=== PATIENT | male | born 1955 | race African-American/Black ===

== ENCOUNTER 2016-08-21 10:05 | Emergency (ER) | payer OTHER, BC ==
[~2016-08-21] VITALS: Ht 180.3 cm; Wt 88.5 kg
--- NOTE | ~2016-08-21 | EKG ---
[address] [address] ELECTROCARDIOGRAM REPORT Name: SALLYKEESHA Lida [id number] Admission: 08/21/16 Attend Phys: Discharge: 08/21/16 Date of : 55 Report #: [id number] THIS REPORT FOR: //name// [facility] ED Test Date: 2016-08-21 Test Time: 10:21:13 Pat Name: KEESHA ZAVALA Department: Room: Gender: M Learning And Development Intern: katelynn : 1955 Requested By: Saad Rizzo Order Number: [id number] MD: Raoul Peña Measurements Intervals [place] Rate: 108 P: 69 WV: 140 QRS: 39 QRSD: 83 T: 66 QT: 341 QTc: 457 Interpretive Statements Sinus tachycardia Otherwise no significant abnormality Compared to ECG 12/27/2015 21:59:39 Prolonged QT interval no longer present Electronically Signed On 08-22-2016 8:51:15 CITY LETTER CARRIER by Raoul Peña [email or web address] <ELECTRONICALLY SIGNED> By: Raoul Peña MD, [facility] 08/22/16 0851 1021 1021 Raoul Peña MD, FACC /EPI
[~2016-08-21 10:05] MED LIST: ALLOPURINOL 10100 M1 PO; ALLOPURINOL 30300 M1 PO; ALLOPURINOL 30300 M2 PO; APAP500 PO; ASPIRIN325 PO; AUGMENTIN XR1000 MG PO; BENADRYL25 MG PO; BENTYL 10 MG CA10 M1 PO; CALCIUM ACETAT667 M2 PO; CALCIUM ACETAT667 MG PO; CARAFATE 1 GM TA1 G1 PO; CARISOPRODOL 3350 MG PO; CARVEDILOL12.5 MG PO; CARVEDILOL6.25 MG PO; CATAPRES0.1 MG PO; CEFTIN 250 MG250 MG PO; CLARITIN10 MG; CLONIDINE HCL0.2 M2 PO; CLONIDINE-TTS0.3 MG TRANSDERM; CLONIDINE0.1 PO; COLACE 100 MG100 MG PO; DIAZEPAM 5 MG5 MG PO; DILTIAZEM 24HR120 M1 PO; ENALAPRIL MALEA10 M1 PO; ERYTHROMYCIN E400 MG PO; FENTANYL PA50 MCG/HR TOP; FENTANYL PA50 MCG/HR TRANSDERM; FUROSEMIDE 40 M40 MG PO; GAS-X125 MG PO; HUMALOG MI100 UNIT/6 SUBQ; HYDROCODON-ACE1 EAC7 PO; HYDROCODONE-IBU1 TAB PO; IBUPROFEN 200200 M1 PO; LANSOPRAZOLE30 MG PO; LANTUS SUBQ; LAXATIVE PEG 3317 GM PO; LIDODERM 5%1 PATC1 TRANSDERM; LISINOPRIL20 MG PO; LISINOPRIL40 MG PO; MEDROLDOSEPACK PO; METHADONE HCL 110 M1 PO; METOCLOPRAMIDE 55 M1 PO; METOLAZONE 5 MG5 M1 PO; MIRALAX17 GM PO; MYLANTA TABLET1 TA1 PO; NEPHROCAPS SOFT1 CAP PO; NEURONTIN 300300 M1 PO; NORCO 5-325 TA1 EACH PO; NORVASC10 MG PO; NOVOLIN 70100 UNIT/5 SUBQ; NOVOLOG MI100 UNIT/2 SUBQ; NYSTATIN 1100000 U/M SWISH&SPIT; ONDANSETRON HCL4 M2 PO; OXECTA5 MG PO; OXYCODONE HCL10 MG PO; OXYCODONE HCL5 M1 PO; OXYCONTIN10 M1 PO; PAIN & FEVER325 MG PO; PANCREAZE 4,201 EACH PO; PERCOCET 5-3251 EACH PO; PERCOCET 7.5-31 EACH PO; PERCOCET PO; PHENERGAN 25 MG25 M1 PO; PHENERGAN50 MG RC; PRAVACHOL40 MG PO; PREVACID 24HR15 MG PO; PRILOSEC20 MG PO; PROTONIX40 M1 PO; PROTONIX40 M2 PO; PROTONIX40 MG PO; REGLAN 5 MG TAB5 MG PO; ROBAXIN 750 MG750 M1 PO; SENOKOT-S1 TA1 PO; SENSIPAR 30 MG30 M1 PO; TAMSULOSIN HCL0.4 MG PO; TRAMADOL 50 MG50 MG PO; TRANSDERM-SCO1 PATC1 TD; TRANSDERM-SCO1 PATC1 TRANSDERM; TRAZODONE HCL50 MG PO; TUMS PO; VICOPROFEN 2001 EACH PO; VOLTAREN GEL 1100 G2 TOP; XANAX 1 MG TABLE1 MG PO; ZOFRAN ODT4 MG PO; ZOLOFT25 MG PO
[2016-08-21 10:28] LABS: HEMATOCRIT 41.2 % (42.0-52.0); HEMOGLOBIN 13.5 gm/dL (14.0-18.0); MCH 26.3 pg (26.0-34.0); MCHC 32.7 % (28.0-37.0); MCV 80.5 fL (80.0-100.0); PLATELET COUNT 218 thou/uL (150-400); RBC 5.12 mil/uL (4.50-6.00); RDW 16.3 % (10.5-14.5); WBC 12.3 thou/uL (4.0-11.0)
[2016-08-21 10:31] LABS: MANUAL DIFF YES
[2016-08-21] MEDS ORDERED: ALLOPURINOL 30300 M2 PO (10:31)
[2016-08-21] MEDS ORDERED: AMLODIPINE BESY10 MG PO (10:32)
[2016-08-21] MEDS ORDERED: ASPIRIN325 PO (10:32)
[2016-08-21] MEDS ORDERED: NEPHROCAPS SOFT1 CAP PO (10:33)
[2016-08-21] MEDS ORDERED: COREG25 MG PO (10:33)
[2016-08-21] MEDS ORDERED: SENSIPAR 30 MG30 M1 PO (10:33)
[2016-08-21] MEDS ORDERED: COLACE100 MG PO (10:34)
[2016-08-21] MEDS ORDERED: VOLTAREN GEL 1100 G2 TOP (10:34)
[2016-08-21] MEDS ORDERED: ERYTHROMYCIN E400 MG PO (10:48)
[2016-08-21] MEDS ORDERED: NEURONTIN 300300 M1 PO (10:49)
[2016-08-21] MEDS ORDERED: HUMALOG100 UNIT/2 SQ (10:50)
[2016-08-21] MEDS ORDERED: METHADONE HCL 110 M1 PO (10:51)
[2016-08-21] MEDS ORDERED: LIDOCAINE5 GM TP (10:51)
[2016-08-21] MEDS ORDERED: REGLAN 10 MG TA10 MG PO ×2 (10:52→12:35)
[2016-08-21] MEDS ORDERED: ZOFRAN4 MG PO (10:53)
[2016-08-21] MEDS ORDERED: OXYCODONE HCL15 MG PO (10:53)
[2016-08-21] MEDS ORDERED: PROTONIX40 M1 PO (10:53)
[2016-08-21] MEDS ORDERED: PROMS25 WY RECTAL (10:54)
[2016-08-21] MEDS ORDERED: PRAVACHOL40 MG PO (10:54)
[2016-08-21] MEDS ORDERED: MIRALAX17 GM PO (10:54)
[2016-08-21] MEDS ORDERED: TRANSDERM-SCO1 PATC1 TRANSDERM (10:55)
[2016-08-21] MEDS ORDERED: RENVELA800 MG PO (10:56)
[2016-08-21] MEDS ORDERED: CARAFATE 11 GM/10 M1 PO (10:57)
[2016-08-21] MEDS ORDERED: TRAZODONE HCL50 MG PO (10:58)
[2016-08-21 11:18] LABS: ABSOLUTE NEUTROPHILS 10.8 thou/uL (1.4-8.2); TOTAL CELL COUNT 100
[2016-08-21 11:19] LABS: ANISOCYTOSIS 1+
[2016-08-21 11:24] LABS: ALBUMIN 4.1 g/dL (3.4-5.0); CALCIUM 9.8 mg/dL (8.5-10.1); CREATININE 6.1 mg/dL (0.6-1.3); POTASSIUM 3.5 mmol/L (3.5-5.1); TOTAL BILIRUBIN 0.9 mg/dL (<0.1-1.0); TOTAL PROTEIN 8.4 g/dL (6.4-8.2)
[2016-08-21] MEDS ORDERED: PHENERGAN 25 MG25 M1 PO (11:54)
[2016-08-21 12:38] VITALS: BP 171/96
[2016-10-14] MEDS ORDERED: PERCOCET 10-321 EAC1 PO (18:39)
[2016-10-14] MEDS ORDERED: CARAFATE1 GM/10 ML PO (19:31)
== END 2016-08-21 12:42 | disposition home or self-care (01) ==
LOC: ER 10:05
PROVIDERS: Physician Assistant
DX: K31.84 Gastroparesis (principal); R11.2 Nausea with vomiting, unspecified; I12.0 Hypertensive chronic kidney disease with stage 5 chronic kidney disease or end stage renal disease; E11.22 Type 2 diabetes mellitus with diabetic chronic kidney disease; E78.5 Hyperlipidemia, unspecified; K21.9 Gastro-esophageal reflux disease without esophagitis; F12.10 Cannabis abuse, uncomplicated; F32.9 Major depressive disorder, single episode, unspecified; F41.9 Anxiety disorder, unspecified; I25.2 Old myocardial infarction; N18.6 End stage renal disease; N17.9 Acute kidney failure, unspecified; Z99.2 Dependence on renal dialysis; Z79.4 Long term (current) use of insulin; Z87.891 Personal history of nicotine dependence

== ENCOUNTER 2016-12-12 23:42 | Emergency (ER) | payer OTHER, BC ==
[~2016-12-12] VITALS: Ht 180.3 cm; Wt 85.7 kg
[~2016-12-12 23:42] MED LIST changes: +AMLODIPINE BESY10 MG PO; +CARAFATE 11 GM/10 M1 PO; +CARAFATE1 GM/10 ML PO; +COLACE100 MG PO; +COREG25 MG PO; +HUMALOG100 UNIT/2 SQ; +LIDOCAINE5 GM TP; +OXYCODONE HCL15 MG PO; +PERCOCET 10-321 EAC1 PO; +PROMS25 WY RECTAL; +REGLAN 10 MG TA10 MG PO; +RENVELA800 MG PO; +ZOFRAN4 MG PO
[2016-12-12] MEDS ORDERED: OXYCODONE HCL10 MG PO (23:55)
[2016-12-13] MEDS ORDERED: REGLAN 10 MG TA10 MG PO (01:06)
[2016-12-13] MEDS ORDERED: PHENERGAN 25 MG25 M1 PO (01:06)
[2016-12-13 01:15] VITALS: BP 138/76
== END 2016-12-13 01:15 | disposition home or self-care (01) ==
LOC: ER 23:42
DX: K31.84 Gastroparesis (principal); E78.5 Hyperlipidemia, unspecified; K21.9 Gastro-esophageal reflux disease without esophagitis; I12.0 Hypertensive chronic kidney disease with stage 5 chronic kidney disease or end stage renal disease; E11.22 Type 2 diabetes mellitus with diabetic chronic kidney disease; N18.6 End stage renal disease; I25.2 Old myocardial infarction; F17.210 Nicotine dependence, cigarettes, uncomplicated; Z79.4 Long term (current) use of insulin; Z88.5 Allergy status to narcotic agent

== ENCOUNTER 2016-12-14 07:33 | Inpatient (IN) | payer OTHER, BC ==
[~2016-12-14] VITALS: Ht 180.3 cm; Wt 80.3 kg
--- NOTE | ~2016-12-14 | EKG ---
[place] [address] [facility] [place] [address] ELECTROCARDIOGRAM REPORT Name: MANNY ZAVALADARLIN Hilton [facility] [id number] Admission: 12/14/16 Attend Phys: Discharge: Date of : 55 Report #: [id number] THIS REPORT FOR: //name// [facility] ED Test Date: 2016-12-14 Test Time: 08:20:05 Pat Name: KEESHA ZAVALA Department: Room: Gender: Bander Hand: Suzanne SANTIAGO : 1955 Requested By: Reyes Jalloh Order Number: [id number] MD: Raoul Peña Measurements Intervals [place] Rate: 107 P: 56 ID: 149 QRS: 43 QRSD: 87 T: 58 QT: 349 QTc: 466 Interpretive Statements Sinus tachycardia Otherwise no significant abnormality Compared to ECG 10/23/2016 14:51:49 Sinus rhythm no longer present ST (T wave) deviation no longer present Prolonged QT interval no longer present Electronically Signed On 12-14-2016 8:38:46 CDT by Raoul Peña [email or web address] <ELECTRONICALLY SIGNED> By: Raoul Peña MD, [facility] 12/14/16 0838 9 9 Raoul Peña MD, [facility] /EPI
--- NOTE | ~2016-12-14 | HC ---
[facility] [place] [address] CONSULTATION Name: KEESHA ZAVALA Room #: 432-P ADM IN M.R.#: [id number] Admission: 12/14/16 Attend Phys: Magan Sargent MD Discharge: Date of : 55 Report #: [id number] THIS REPORT FOR: //name// CC: Magan Sargent REASON FOR PRESENTATION: Nausea and vomiting. REASON FOR CONSULTATION: End-stage renal disease. HISTORY OF PRESENT ILLNESS: The patient is a 61-year-old with past medical history of end-stage renal disease due to diabetes mellitus and hypertension. He dialyzes every Sunday, Sunday and Sunday utilizing a right-sided AV fistula. He is known to have severe gastroparesis due to his diabetes mellitus. He is also known to have chronic narcotic abuse. He presented with complaint of nausea and vomiting for the last 1 week. He reported that he has not been eating and drinking. He was initially evaluated on Sunday and was sent home, returned on Sunday with the same symptoms and was admitted for further evaluation and management. He admitted to poor appetite. No chest pain or palpitation, no hematemesis, no hematochezia, no melena. He ran out of his oxycodone prescribed by his primary care physician. Unfortunately, he has not been taking his scopolamine. He had numerous admissions in the past and was evaluated by the GI team on multiple occasions. As far as I recall his most recent colonoscopy and EGD were done back in 2014 and 2015 and at that time, he had gastritis and some polyps with diverticulosis. He was admitted for further evaluation and management of his GI . I was consulted to manage his end-stage renal disease. PAST MEDICAL HISTORY: 1. Numerous including the following end-stage renal disease, maintained on dialysis every Sunday, Sunday and Sunday. 2. Status post nephrectomy due to renal cell cancer. 3. Diabetes mellitus. 4. Coronary artery disease. 5. All diabetic complications including neuropathy. 6. Ventral hernia repair. 7. Erectile dysfunction. 8. Sciatica. 9. Gastroparesis. PAST SURGICAL HISTORY: 1. Dialysis access fistula. 2. Ventral hernia repair. 3. Colonoscopies. 4. EGDs. MEDICATIONS: 1. Allopurinol. [address] [address] CONSULTATION Name: KEESHA ZAVALA Lida Room #: 432[facility]P [facility] [id number] Admission: 12/14/16 Attend Phys: Magan Sargent MD Discharge: Date of : 55 Report #: [id number] 2. Amlodipine. 3. Carvedilol. 4. Sensipar. 5. Gabapentin. 6. Insulin. 7. Pravastatin. 8. Scopolamine. 9. Sevelamer. ALLERGIES: CODEINE. SOCIAL HISTORY: Continues to smoke, using marijuana. FAMILY HISTORY: Very strong family history of diabetes mellitus and hypertension. REVIEW OF SYSTEMS: GENERAL: No fever or chills. CARDIOVASCULAR: No chest pain or palpitation. PULMONARY: No cough or hemoptysis. GASTROINTESTINAL: As per the history of present illness. MUSCULOSKELETAL: Diffuse arthralgias and myalgias. PHYSICAL EXAMINATION: GENERAL: He is alert, oriented, in no apparent distress. VITAL SIGNS: Blood pressure 106/71. He had an extreme high blood pressure readings on presentation yesterday with a blood pressure of 200/114. HEAD AND NECK: No jugular venous distention, no bruit, no thyromegaly. CHEST: Decreased air entry bilaterally, but no crackles. CARDIOVASCULAR: No rub detected, regular with a soft systolic murmur. ABDOMEN: Soft, nontender with no hepatosplenomegaly. LOWER EXTREMITIES: No edema. LABORATORY VALUES: Reviewed. White blood cell count was 15.5 yesterday. No labs available today. AST and ALT were on the lower range. Lipase was normal. CT was reviewed. No acute finding. ASSESSMENT, IMPRESSION AND PLAN: 1. End-stage renal disease. 2. Gastroparesis. 3. Chronic pain. 4. Diabetes mellitus with all of its complications. 5. Hypertension. 6. Hemodialysis, ongoing right now. 7. GI is seeing and adjusting his medications for his gastroparesis. [address] [address] CONSULTATION Name: SALLYKEESHA Room #: 432-P [facility] IN M.R.#: [id number] Admission: 12/14/16 Attend Phys: Magan Sargent MD Discharge: Date of : 55 Report #: [id number] 8. Methadone had been stopped. He is started on erythromycin. Scopolamine had been resumed. 9. Plan for an EGD today. Unfortunately, ongoing noncompliance and chronic narcotic use complicate his management. We will continue to follow along. <ELECTRONICALLY SIGNED> By: Anthony Argueta MD 12/16/16 1640 0836 1405 Anthony Argueta MD /nt
--- NOTE | ~2016-12-14 | P ---
[facility] [place] [address] PROCEDURE REPORT Name: KEESHA ZAVALA Room #: 432-P [facility] IN M.R.#: [id number] Admission: 12/14/16 Attend Phys: Magan Sargent MD Discharge: 12/19/16 Date of : 55 Report #: [id number] THIS REPORT FOR: //name// Jan De Leon MD PROCEDURE PERFORMED: Upper Endoscopy DATE OF PROCEDURE: 12/15/2016 DICTATED BY: Jan De Leon MD SCOPE(S) USED: [id number] Sn: [id number] POSTPROCEDURE DIAGNOSES: Reflux esophagitis (see description), Gastritis, Duodenitis MEDICATIONS GIVEN: (See Anesthesiologist Report) INDICATIONS: 61 year old with history of gastroparesis exacerbated by chronic narcotic use., Intractable nausea EXTENT OF EXAMINATION: Second part of the duodenum DESCRIPTION OF PROCEDURE: Informed consent was obtained with the benefits, risks, and alternatives to upper GI endoscopy explained, including the risk of perforation, and the patient agreed to proceed. See anesthesiologist report for patients ASA Classification. Patient re-Examined; and no interval changes noted from preoperative History and Physical. Patients last Upper Endoscopy was 09/25/2014. No contraindications were noted on physical exam. After being placed on the table, patient identification was verified prior to the procedure. Anesthesia administered by Dr. Waller. (See Anesthesiologist report) Anesthesia Provider. Assessment of sedation: Complications- None. Cardiovascular- Stable. Orientation- Sedated. The procedure was performed with the patient in the left lateral decubitus position. The instrument was inserted to the second part of the duodenum. Estimated blood loss for the procedure was 0 ml. The patient tolerated the procedure well. There were no complications. The heart rate was normal. The oxygen saturation and skin color were normal. Upon discharge from the endoscopy area, the patient will be recovered per established procedures and protocols. In the lower third esophagus, grade B: (at least one mucosal break > 5 mm long, but not continuous between the tops of adjacent folds) ([place]) Reflux esophagitis was present. In the antrum, mild gastritis was seen. The gastritis had the following findings; erythematous, edematous. In the duodenal bulb, mild patchy inflammation was seen. The duodenitis had the [facility] [address] [place] [address] PROCEDURE REPORT Name: KEESHA ZAVALA Room #: 432-P [facility] IN [facility].#: [id number] Admission: 12/14/16 Attend Phys: Magan Sargent MD Discharge: 12/19/16 Date of : 55 Report #: [id number] following findings; erythematous. SPECIMEN(S) OBTAINED: Container 1: Biopsies for celiac sprue. times multiple from second part of the duodenum, Container 2: Biopsy for Helicobacter pylori times multiple from antrum DISCHARGE INSTRUCTIONS: The patient was instructed to return to the hospital warner for ongoing care. Continue present medications. Continue IV erythromycin for 24 hours, then transition back to PO. Advance diet to clear liquids. Diet of low fiber, frequent meals is recommended terminal gauger. Antireflux measures discussed with patient. <ELECTRONICALLY SIGNED> By: Jan De Leon MD 01/05/17 1103 1233 1233 Jan De Leon MD /si
--- NOTE | ~2016-12-14 | S ---
[facility] [place] [address] SURGICAL PATH RPT PROCEDURE Name: KEESHA ZAVALA Room #: 432-P ADM IN M.R.#: [id number] Admission: 12/14/16 Date of : 55 Discharge: Report #: [id number] Path Case #: [id number] PATHOLOGY REPORT COLLECTION DATE: 12/15/2016 RECEIVED DATE: 12/15/2016 SUBMITTING PHYS: Dr. Jan De Leon OTHER PHYS: Dr. Magan Sargent SPECIMEN(S) RECEIVED: A.Small bowel B.Antrum * * * * * * * * * * * * FINAL DIAGNOSIS: A. Small bowel, endoscopic biopsy: - Fundic type mucosa with moderate acute inflammation, compatible with moderate acute peptic duodenitis associated with mild villous blunting. - Negative for dysplasia or malignancy. B. Gastric mucosa, antrum, endoscopic biopsy: - Moderate reactive gastropathy. - Negative for intestinal metaplasia or atrophy. - Negative for Helicobacter pylori. COMMENT: Helicobacter pylori immunohistochemical stain performed on block B1 negative. (IUV:csd; d/t: 12/19/2016) PATHOLOGIST: Nannette Sellers M.D. REPORT ELECTRONICALLY SIGNED BY: Nannette Sellers M.D. DATE/TIME: 12/19/2016 15:12 * * * * * * * * * * * * GROSS PATHOLOGY: A. Received in formalin labeled "Keesha John Paul, SB BX," is a segment of cueto soft tissue measuring 0.6 cm in maximum dimension. The specimen is submitted entirely in cassette A1. B. Received in formalin labeled "Keesha Zavala, gastric," are 3 segments of cueto soft tissue measuring 0.5 x 0.3 x 0.2 cm in aggregate dimensions and ranging from 0.2 to 0.5 cm in maximum dimension. The specimen is submitted entirely in cassette B1. (KAH; 12/18/2016) [address] [address] SURGICAL PATH RPT PROCEDURE Name: KEESHA ZAVALA Room #: 432-P ADM IN M.R.#: [id number] Admission: 12/14/16 Date of : 55 Discharge: Report #: [id number] Path Case #: [id number] CLINICAL HISTORY: Nausea INITIAL CPT CODE(S): A; 16353 B; 15926, 62483 Professional services performed by [facility] at [address], [place] [address] Technical services performed by [facility] at [address] [place] [address], [facility] [address] [address]. [facility] [place] [address] PHONE: [phone] DIRECTOR: Bunny Ferrer M.D. * * * END OF REPORT * * *
--- NOTE | ~2016-12-14 | H ---
[facility] [place] [address] HISTORY AND PHYSICAL Name: KEESHA ZAVALA Room #: 432-P [facility] IN M.R.#: [id number] Admission: 12/14/16 Attend Phys: Magan Sargent MD Discharge: 12/19/16 Date of : 55 Report #: [id number] THIS REPORT FOR: //name// CC: Magan Sargent DATE OF SERVICE: 12/14/2016 CHIEF COMPLAINT: Intractable nausea. HISTORY OF PRESENT ILLNESS: The patient is a 61-year-old male with recurrent intractable nausea, due to gastroparesis and chronic narcotic use. He presented with several days episode of nausea and vomiting, has been in the ER already once this week. He continued to have symptoms. He has been on his pain meds for over a week as well. He missed his dialysis yesterday as well. PAST MEDICAL HISTORY: Significant for: 1. End-stage renal disease with dialysis. 2. Intractable nausea, recurrent. 3. Gastroparesis. 4. Diabetes mellitus, insulin requiring. 5. Coronary artery disease, status post prior ID. 6. BPH. 7. Hyperlipidemia. 8. History of pancreatitis. 9. Anxiety. 10. Depression. 11. Reflux. 12. Gout. 13. Hypertension. MEDICATIONS: Include Carafate q.i.d., promethazine p.r.n., Transderm Scop patch p.r.n., allopurinol 300 mg a day, amlodipine 10 mg a day, aspirin 325 mg a day, vitamin B complex daily, Coreg 25 mg b.i.d., Sensipar 30 mg a day, Voltaren gel daily, docusate 100 mg b.i.d., erythromycin 400 mg b.i.d., gabapentin 300 mg at bedtime, insulin Humalog p.r.n., methadone 10 mg b.i.d., Reglan 10 mg q. 4 hours, OxyIR 15 mg q.4 hours p.r.n., Protonix 40 mg a day, MiraLax 17 mg a day, pravastatin 40 mg a day, Transderm Scop patch, and Renvela. ALLERGIES: CODEINE. SOCIAL HISTORY: He does smoke still, prior alcohol use. No recreational drugs. REVIEW OF SYSTEMS: CONSTITUTIONAL: No fever or chills. HEENT: No headaches or visual changes. CHEST: No chest pain, tightness in chest, shortness of breath, cough or sputum [address] [address] HISTORY AND PHYSICAL Name: EKESHA ZAVALA Room #: 432-P [facility] IN ..#: [id number] Admission: 12/14/16 Attend Phys: Magan Sargent MD Discharge: 12/19/16 Date of : 55 Report #: [id number] production. GASTROINTESTINAL: Per above. No diarrhea. GENITOURINARY: No burning or frequency. EXTREMITIES: No swelling or edema. SKIN: No rashes or wounds. NEUROLOGIC: No new numbness. He has chronic paresthesias. No new weakness. PHYSICAL EXAMINATION: VITAL SIGNS: In the ER, blood pressure initially 200/114, pulse was 111, respiratory rate was 20, temperature was 36.4. His current blood pressure is down to 192/109. GENERAL: He is still very nauseated. HEENT: His mucous membranes are dry. NECK: Supple, without adenopathy, thyromegaly, or bruits. CHEST: Clear to auscultation. CARDIOVASCULAR: Regular rate and rhythm, without murmur. ABDOMEN: Soft but tender throughout. No rebound or guarding. Bowel sounds are present. EXTREMITIES: Showed no edema. Pulses are intact. LABORATORY DATA: EKG showed sinus tachycardia, rate of 107. Sodium 137, potassium 4.8, chloride 92, bicarbonate 20, BUN 59, creatinine 14.4, glucose 146, calcium 9.7, total bilirubin 0.7, AST 19, ALT 14, alkaline phosphatase 175. Troponin less than 0.04. Total protein 8.5, lipase 374. WBC is 15.5, hemoglobin 13.1, hematocrit 39.9, platelet count 177. 80 segs, 12 lymphs, [address] abdomen shows no inflammatory masses, abscesses, or acute process. ASSESSMENT AND PLAN: 1. Recurrent intractable nausea and vomiting. Started on antiemetics, promethazine plus IV Reglan, plus oral erythromycin. 2. Hypertensive urgency. I think related to his end-stage renal disease combined with his pain and nausea. 3. Chronic abdominal pain. We are going to consult GI, to see if there are any other ideas for his discomfort. 4. End-stage renal disease. Consult renal. We are going to do dialysis. 5. Diabetes mellitus. We will resume his home insulin and place him on a sliding scale for regular. 6. Chronic pain. sliding scale insulin. We will keep him n.p.o. until his nausea improves. <ELECTRONICALLY SIGNED> By: Magan Sargent MD 01/02/17 1511 1256 1532 Magan Sargent MD /nt
[2016-12-14 07:37] VITALS: BP 200/114
[2016-12-14 08:11] LABS: ABSOLUTE NEUTROPHILS 12.5 thou/uL (1.4-8.2); BASOPHILS 0.6 % (0.0-2.0); EOSINOPHILS 0.9 % (0.0-3.0); HEMATOCRIT 39.9 % (42.0-52.0); HEMOGLOBIN 13.1 gm/dL (14.0-18.0); MANUAL DIFF NO; MCH 25.1 pg (26.0-34.0); MCHC 32.7 g/dL (28.0-37.0); MCV 76.7 fL (80.0-100.0); PLATELET COUNT 177 thou/uL (150-400); POLYS 80.5 % (36.0-66.0); RDW 14.3 % (10.5-14.5); WBC 15.5 thou/uL (4.0-11.0)
[2016-12-14 08:24] LABS: CALCIUM 9.7 mg/dL (8.5-10.1); CREATININE 14.4 mg/dL (0.7-1.3); POTASSIUM 4.8 mmol/L (3.5-5.1)
[2016-12-14 08:28] LABS: ALBUMIN 4.2 g/dL (3.4-5.0); TOTAL BILIRUBIN 0.7 mg/dL (<0.1-1.0); TOTAL PROTEIN 8.5 g/dL (6.4-8.2)
[2016-12-14 10:59] VITALS: BP 210/117
[2016-12-14 11:31] VITALS: BP 192/109
[2016-12-14 21:00] VITALS: BP 191/108
[2016-12-14 22:00] VITALS: BP 140/85
[2016-12-15 04:30] VITALS: BP 113/68
[2016-12-15 08:23] VITALS: BP 106/71
[2016-12-15 11:46] LABS: POTASSIUM 3.5 mmol/L (3.5-5.1)
[2016-12-15 11:47] LABS: CREATININE 4.4 mg/dL (0.7-1.3)
[2016-12-15 13:56] VITALS: BP 118/75
[2016-12-15 20:41] VITALS: BP 99/64
[2016-12-16 05:29] VITALS: BP 168/103
[2016-12-16 07:25] VITALS: BP 181/104
[2016-12-16 10:23] VITALS: BP 120/71
[2016-12-16 17:08] VITALS: BP 114/65
[2016-12-16 20:00] VITALS: BP 118/86
[2016-12-16] MEDS ORDERED: BENADRYL25 MG PO (20:23)
[2016-12-17 04:58] VITALS: BP 84/52
[2016-12-17 08:13] VITALS: BP 87/58
[2016-12-17 16:40] VITALS: BP 126/71
[2016-12-17 19:55] VITALS: BP 121/82
[2016-12-18 04:19] VITALS: BP 79/50
[2016-12-18 06:31] VITALS: BP 97/66
[2016-12-18 08:44] VITALS: BP 111/67
[2016-12-18] MEDS ORDERED: METHADONE HCL 110 M1 PO (12:36)
[2016-12-18] MEDS ORDERED: OXYCODONE HCL15 MG PO (12:36)
[2016-12-18 13:36] VITALS: BP 111/67
[2016-12-18 15:47] VITALS: BP 109/72
[2016-12-18 20:00] VITALS: BP 111/74
[2016-12-19 05:00] VITALS: BP 104/72
[2016-12-19 07:23] VITALS: BP 104/68
[2016-12-19 13:42] VITALS: BP 111/67
== END 2016-12-19 16:04 | disposition home or self-care (01) | DRG 73 ==
LOC: ER 07:33 → EROBS 09:50 → 4E 11:00 → EROBS 11:00 → 4E 11:27
PROVIDERS: Emergency Medicine; Internal Medicine Gastroenterology
PROC: 0DB68ZX Excision of Stomach, Via Natural or Artificial Opening Endoscopic, Diagnostic (ICD-10-PCS; principal; 2016-12-15)
PROC: 0DB88ZX Excision of Small Intestine, Via Natural or Artificial Opening Endoscopic, Diagnostic (ICD-10-PCS; principal; 2016-12-15)
PROC: 5A1D60Z (ICD-10-PCS; 2016-12-18)
DX: E11.43 Type 2 diabetes mellitus with diabetic autonomic (poly)neuropathy (principal); N18.6 End stage renal disease; I12.0 Hypertensive chronic kidney disease with stage 5 chronic kidney disease or end stage renal disease; E78.5 Hyperlipidemia, unspecified; E11.22 Type 2 diabetes mellitus with diabetic chronic kidney disease; N40.0 Benign prostatic hyperplasia without lower urinary tract symptoms; E11.40 Type 2 diabetes mellitus with diabetic neuropathy, unspecified; F41.9 Anxiety disorder, unspecified; F32.9 Major depressive disorder, single episode, unspecified; M10.9 Gout, unspecified; M54.30 Sciatica, unspecified side; F17.210 Nicotine dependence, cigarettes, uncomplicated; K31.84 Gastroparesis; G89.29 Other chronic pain; I16.0 Hypertensive urgency; K21.0 Gastro-esophageal reflux disease with esophagitis; K29.70 Gastritis, unspecified, without bleeding; K29.80 Duodenitis without bleeding; D63.1 Anemia in chronic kidney disease; K59.00 Constipation, unspecified; I25.2 Old myocardial infarction; Z90.5 Acquired absence of kidney; Z82.49 Family history of ischemic heart disease and other diseases of the circulatory system; Z83.3 Family history of diabetes mellitus; Z88.6 Allergy status to analgesic agent; Z85.528 Personal history of other malignant neoplasm of kidney; Z99.2 Dependence on renal dialysis
CPT/HCPCS: 10183; 32100; 62110; 62900; 70005

== ENCOUNTER 2017-09-05 01:44 | Inpatient (IN) | payer OTHER, BC ==
[~2017-09-05] VITALS: Ht 180.3 cm; Wt 83.6 kg
--- NOTE | ~2017-09-05 | HC ---
[facility] [place] [address] CONSULTATION Name: KEESHA ZAVALA Lida Room #: 357-P [facility] IN M.R.#: [id number] Admission: 09/05/17 Attend Phys: Magan Sargent MD Discharge: 09/07/17 Date of : 55 Report #: [id number] THIS REPORT FOR: //name// CC: Nitesh Sargent PAST REASON FOR CONSULTATION: End-stage renal disease. REASON FOR PRESENTATION: Abdominal pain. HISTORY OF PRESENT ILLNESS: This is a very well known patient to me. He is an end-stage renal disease patient with diabetes mellitus, hypertension, repeated episodes of hospitalization due to narcotic abuse. He presented complaining of worsening abdominal pain and was admitted for further evaluation and management because of his inability to eat. He reported that he has been having some nausea and vomiting and diarrhea for the last few days. He is supposed to be dialyzing today. I am being asked to evaluate for his dialysis needs. PAST MEDICAL HISTORY: 1. Right-sided nephrectomy due to renal cell carcinoma. 2. Diabetes mellitus. 3. Hypertension. 4. Coronary artery disease. 5. End-stage renal disease, maintained on dialysis every Sunday, Sunday and Sunday. PAST SURGICAL HISTORY: 1. Left AV fistula. 2. Right foot surgery post-lawnmower accident. 3. Right nephrectomy. MEDICATIONS: 1. Aspirin. 2. Carvedilol. 3. Sensipar. 4. Gabapentin. 5. Insulin. 6. Pravastatin. 7. Renal gel. 8. Sucralfate. ALLERGIES: CODEINE. SOCIAL HISTORY: No drug or alcohol abuse. REVIEW OF SYSTEMS: CONSTITUTIONAL: No fever or chills. [facility] [address] [place] [address] CONSULTATION Name: KEESHA ZAVALA Room #: 357-P [facility] IN .R.#: [id number] Admission: 09/05/17 Attend Phys: Magan Sargent MD Discharge: 09/07/17 Date of : 55 Report #: [id number] CARDIOVASCULAR: No chest pain or palpitation. NECK: Supple. PULMONARY: No cough or hemoptysis. GASTROINTESTINAL: As per the history of present illness. PHYSICAL EXAMINATION: GENERAL: The patient is alert, oriented, in no apparent distress. VITAL SIGNS: Blood pressure is 104/76, temperature 37, pulse rate 104, respiratory rate 18. HEAD AND NECK: No jugular venous distention, no bruit or thyromegaly. CHEST: Clear to auscultation bilaterally. CARDIOVASCULAR: Regular with no rub. ABDOMEN: Soft, nontender. LOWER EXTREMITIES: No edema. LABORATORY DATA: Reviewed. White blood cell count is mildly elevated at 15.5. Potassium 5.4, BUN 43, creatinine 2.7. ASSESSMENT, IMPRESSION: 1. End-stage renal disease. 2. Narcotic abuse. 3. Diabetes mellitus. 4. Hypertension. PLAN: 1. Dialysis will be arranged for the patient today. He is known to have major issues with narcotic dependence and this was addressed with him on numerous occasions. Continue blood pressure medications. 2. Resume his outpatient dialysis related medications. 3. Blood sugar control. <ELECTRONICALLY SIGNED> By: Anthony Argueta MD 09/09/17 1505 0911 1849 Anthony Argueta MD /nt
--- NOTE | ~2017-09-05 | EKG ---
[address] [address] ELECTROCARDIOGRAM REPORT Name: KEESHA ZAVALA Room #: 170-5 ADM IN M.R.#: [id number] Admission: 09/05/17 Attend Phys: Magan Sargent MD Discharge: Date of : 55 Report #: [id number] THIS REPORT FOR: //name// [facility] ED Test Date: 2017-09-05 Test Time: 02:17:18 Pat Name: KEESHA ZAVALA Department: Room: 170 Gender: M Nutrition Internship: MZOOK : 1955 Requested By: Chiquis Verma Order Number: [id number] MD: Jerome Ansari Measurements Intervals [place] Rate: 102 P: 55 ID: 128 QRS: 50 QRSD: 95 T: 59 QT: 346 QTc: 451 Interpretive Statements Sinus tachycardia Probable left atrial enlargement Abnormal R-wave progression, early transition Compared to ECG 12/14/2016 08:20:05 No significant changes Electronically Signed On 09-05-2017 8:18:41 SOLE RUFFER by Jerome Ansari [email or web address] <ELECTRONICALLY SIGNED> By: Jerome Ansari MD 09/05/17817 6 6 Jerome Ansari MD /EPI
[2017-09-05 01:45] VITALS: BP 104/76
[2017-09-05 02:28] LABS: ABSOLUTE NEUTROPHILS 12.6 thou/uL (1.4-8.2); BASOPHILS 0.9 % (0.0-2.0); EOSINOPHILS 0.4 % (0.0-3.0); HEMATOCRIT 41.4 % (42.0-52.0); HEMOGLOBIN 13.5 gm/dL (14.0-18.0); LYMPHOCYTES 11.2 % (24.0-44.0); MCH 25.4 pg (26.0-34.0); MCHC 32.7 g/dL (28.0-37.0); MCV 77.8 fL (80.0-100.0); MONOCYTES 5.7 % (1.0-8.0); PLATELET COUNT 176 thou/uL (150-400); POLYS 81.8 % (36.0-66.0); RBC 5.32 mil/uL (4.50-6.00); RDW 14.8 % (10.5-14.5); WBC 15.5 thou/uL (4.0-11.0)
[2017-09-05 02:37] LABS: CALCIUM 9.5 mg/dL (8.5-10.1); CREATININE 10.7 mg/dL (0.7-1.3); POTASSIUM 5.4 mmol/L (3.5-5.1)
[2017-09-05 02:43] LABS: ALBUMIN 3.9 g/dL (3.4-5.0); DIRECT BILIRUBIN 0.2 mg/dL (<0.1-0.3); TOTAL BILIRUBIN 0.6 mg/dL (<0.1-1.0); TOTAL PROTEIN 7.7 g/dL (6.4-8.2)
[2017-09-05 07:15] VITALS: BP 102/62
[2017-09-05 09:11] VITALS: BP 108/78
[2017-09-05 17:18] VITALS: BP 137/65
[2017-09-05 19:54] VITALS: BP 107/69
[2017-09-05 22:12] VITALS: BP 99/61
[2017-09-06 05:54] VITALS: BP 139/63; BP 80/54
[2017-09-06 07:30] VITALS: BP 86/66
[2017-09-06 16:13] VITALS: BP 109/69
[2017-09-06 20:00] VITALS: BP 105/51
[2017-09-07 04:00] VITALS: BP 101/69
[2017-09-07 07:40] VITALS: BP 101/68
[2017-09-07 13:36] VITALS: BP 101/68
== END 2017-09-07 14:11 | disposition home or self-care (01) | DRG 73 ==
LOC: ER 01:44 → 3W 05:36 → EROBS 05:36 → 3W 06:35 → ENTRNSPT 09-07 13:58 → EDTRNSPTSTS 09-07 14:00 → 3W 09-07 14:11
PROVIDERS: Emergency Medicine
PROC: 5A1D70Z Performance of Urinary Filtration, Intermittent, Less than 6 Hours Per Day (ICD-10-PCS; principal; 2017-09-05)
PROC: 5A1D70Z Performance of Urinary Filtration, Intermittent, Less than 6 Hours Per Day (ICD-10-PCS; 2017-09-07)
DX: E11.43 Type 2 diabetes mellitus with diabetic autonomic (poly)neuropathy (principal); N18.6 End stage renal disease; I12.0 Hypertensive chronic kidney disease with stage 5 chronic kidney disease or end stage renal disease; F19.10 Other psychoactive substance abuse, uncomplicated; K31.84 Gastroparesis; E78.5 Hyperlipidemia, unspecified; N40.0 Benign prostatic hyperplasia without lower urinary tract symptoms; F41.9 Anxiety disorder, unspecified; K21.9 Gastro-esophageal reflux disease without esophagitis; M10.9 Gout, unspecified; E11.22 Type 2 diabetes mellitus with diabetic chronic kidney disease; G89.29 Other chronic pain; M54.5 Low back pain; I25.10 Atherosclerotic heart disease of native coronary artery without angina pectoris; Z87.891 Personal history of nicotine dependence; Z88.5 Allergy status to narcotic agent; Z90.5 Acquired absence of kidney; I25.2 Old myocardial infarction; Z79.4 Long term (current) use of insulin
CPT/HCPCS: 10080; 32100

== ENCOUNTER 2017-10-04 14:11 | Inpatient (IN) | payer OTHER, BC ==
[~2017-10-04] VITALS: Ht 180.3 cm; Wt 83.5 kg
--- NOTE | ~2017-10-04 | EKG ---
[place] [address] [address] [facility] [place] [address] ELECTROCARDIOGRAM REPORT Name: KEESHA [facility]AVALA [id number] Admission: 10/04/17 Attend Phys: Discharge: Date of : 55 Report #: [id number] THIS REPORT FOR: //name// [facility] ED Test Date: 2017-10-04 Test Time: 16:21:17 Pat Name: KEESHA ZAVALA Department: Room: Gender: M Employee Service Officer: MZOOK : 1955 Requested By: Rich Eugene Order Number: [id number] MD: Jerome Ansari Measurements Intervals [place] Rate: 92 P: 36 [place]: 156 QRS: 31 QRSD: 79 T: 60 QT: 367 QTc: 455 Interpretive Statements Sinus rhythm Borderline low voltage, extremity leads Abnormal R-wave progression, early transition Artifact in lead(s) I,II,aVR,aVL,aVF Compared to ECG 09/05/2017 02:17:18 Sinus tachycardia no longer present Electronically Signed On 10-04-2017 16:32:07 ANIMAL PATHOLOGIST by Jerome Ansari [email or web address] <ELECTRONICALLY SIGNED> By: Jerome Ansari MD 10/04/17 1632 1621 1621 Jerome Ansari MD /EPI
--- NOTE | ~2017-10-04 | HC ---
[facility] [place] [address] CONSULTATION Name: KEESHA ZAVALA Lida Room #: 421-P [facility] IN M.R.#: [id number] Admission: 10/04/17 Attend Phys: Magan Sargent MD Discharge: 10/07/17 Date of : 55 Report #: [id number] THIS REPORT FOR: //name// CC: Magan Sargent REASON FOR CONSULTATION: End-stage renal disease. REASON FOR PRESENTATION: Abdominal pain. HISTORY OF PRESENT ILLNESS: This is a very well known patient to me. He is in end-stage renal disease, maintained on hemodialysis every Sunday, Sunday and Sunday. He suffers from complications related to diabetes mellitus and hypertension. He was just discharged from the hospital a few days ago. He reported to the Emergency Room, complaining of the same symptoms consistent with abdominal pain, nausea, vomiting, inability to take p.o. He is known to have gastroparesis and had some issues with drug dependence. He missed his dialysis on Sunday because of his symptoms. No other associated symptoms. He was admitted for further evaluation and management and I was consulted to manage his end-stage renal disease issues. PAST MEDICAL HISTORY: 1. Narcotic dependence. 2. Status post nephrectomy. 3. Diabetes mellitus. 4. Coronary artery disease. 5. Depression. 6. Pancreatitis. 7. End-stage renal disease. 8. Hypertension. 9. Status post right-sided AV fistula. ALLERGIES: CODEINE. MEDICATIONS: 1. Sensipar: 2. Carvedilol. 3. Erythromycin. 4. Insulin. 5. Reglan. 6. Pantoprazole. 7. Pravastatin. 8. Scopolamine. 9. Sucralfate. 10. Renvela. SOCIAL HISTORY: No drug or alcohol abuse. He lives with his . [facility] [address] [place] [address] CONSULTATION Name: KEESHA ZAVALA Lida Room #: 421-P [facility] IN [facility].#: [id number] Admission: 10/04/17 Attend Phys: Magan Sargent MD Discharge: 10/07/17 Date of : 55 Report #: [id number] REVIEW OF SYSTEMS: GENERAL: No fever or chills. CARDIOVASCULAR: No chest pain or palpitation. PULMONARY: No cough or hemoptysis. GASTROINTESTINAL: As per history of present illness. SKIN: No rash or ulcerations. PHYSICAL EXAMINATION: VITAL SIGNS: Blood pressure 100/65, temperature 36.7, pulse rate 77. HEAD AND NECK: No jugular venous distention, no bruit, no thyromegaly. CHEST: Clear to auscultation bilaterally. CARDIOVASCULAR: Regular with no rub. ABDOMEN: Soft, nontender, no guarding, no rigidity. LOWER EXTREMITIES: No edema with intact peripheral pulses. LABORATORY DATA: Reviewed. White blood cell count mildly elevated at 13.6. Sodium 137, BUN 56, creatinine 13.5. Alkaline phosphatase is mildly elevated. ASSESSMENT, IMPRESSION AND PLAN: 1. End-stage renal disease. 2. Narcotic dependence. 3. Gastroparesis. 4. Diabetes mellitus. 5. Hypertension. 6. Mild leukocytosis. 7. Hyperparathyroidism. 8. Dialysis will be arranged for the patient today. Continue with the usual medication for his gastroparesis. 9. Avoid narcotics. <ELECTRONICALLY SIGNED> By: Anthony Argueta MD 10/07/17 1409 0805 1044 Anthony Argueta MD /nt
[2017-10-04 14:11] VITALS: BP 117/72
[2017-10-04 16:08] LABS: ABSOLUTE NEUTROPHILS 11.5 thou/uL (1.4-8.2); BASOPHILS 0.8 % (0.0-2.0); EOSINOPHILS 0.6 % (0.0-3.0); HEMATOCRIT 38.3 % (42.0-52.0); HEMOGLOBIN 12.7 gm/dL (14.0-18.0); LYMPHOCYTES 9.1 % (24.0-44.0); MCH 25.6 pg (26.0-34.0); MCV 77.6 fL (80.0-100.0); MONOCYTES 4.4 % (1.0-8.0); PLATELET COUNT 185 thou/uL (150-400); POLYS 85.1 % (36.0-66.0); RBC 4.94 mil/uL (4.50-6.00); RDW 14.2 % (10.5-14.5); WBC 13.6 thou/uL (4.0-11.0)
[2017-10-04 16:17] LABS: CALCIUM 9.2 mg/dL (8.5-10.1); CREATININE 13.5 mg/dL (0.7-1.3); POTASSIUM 4.4 mmol/L (3.5-5.1)
[2017-10-04 16:23] LABS: ALBUMIN 3.6 g/dL (3.4-5.0); TOTAL BILIRUBIN 0.5 mg/dL (<0.1-1.0); TOTAL PROTEIN 8.1 g/dL (6.4-8.2)
[2017-10-04 17:44] VITALS: BP 103/63
[2017-10-04 18:16] VITALS: BP 126/83
[2017-10-04 20:00] VITALS: BP 113/74
[2017-10-05 04:25] VITALS: BP 100/65
[2017-10-05 15:20] VITALS: BP 120/79
[2017-10-05 20:30] VITALS: BP 137/86
[2017-10-06 06:22] VITALS: BP 130/91
[2017-10-06 07:20] VITALS: BP 137/88
[2017-10-06 15:15] VITALS: BP 131/83
[2017-10-06 20:00] VITALS: BP 137/88
[2017-10-07 04:00] VITALS: BP 144/93
[2017-10-07 08:04] VITALS: BP 92/59
[2017-10-07] MEDS ORDERED: NEURONTIN 300300 M1 PO (08:28)
[2017-10-07] MEDS ORDERED: OXYCODONE HCL15 MG PO (08:28)
[2017-10-07] MEDS ORDERED: LIDODERM1 EACH TOP (08:30)
[2017-10-07] MEDS ORDERED: SCOPOLAMINE1 EACH TRANSDERM (08:30)
[2017-10-07 10:11] VITALS: BP 92/59
== END 2017-10-07 11:20 | disposition home or self-care (01) | DRG 73 ==
LOC: ER 14:11 → 4E 17:27 → EROBS 17:27 → 4E 18:11
PROVIDERS: Physician Assistant
PROC: 5A1D70Z Performance of Urinary Filtration, Intermittent, Less than 6 Hours Per Day (ICD-10-PCS; principal; 2017-10-05)
DX: E11.43 Type 2 diabetes mellitus with diabetic autonomic (poly)neuropathy (principal); N18.6 End stage renal disease; I12.0 Hypertensive chronic kidney disease with stage 5 chronic kidney disease or end stage renal disease; F11.20 Opioid dependence, uncomplicated; K31.84 Gastroparesis; E78.5 Hyperlipidemia, unspecified; E11.22 Type 2 diabetes mellitus with diabetic chronic kidney disease; N40.0 Benign prostatic hyperplasia without lower urinary tract symptoms; F41.9 Anxiety disorder, unspecified; K21.9 Gastro-esophageal reflux disease without esophagitis; M10.9 Gout, unspecified; F32.9 Major depressive disorder, single episode, unspecified; E21.3 Hyperparathyroidism, unspecified; G89.4 Chronic pain syndrome; M47.816 Spondylosis without myelopathy or radiculopathy, lumbar region; G43.A0 Cyclical vomiting, in migraine, not intractable; Z99.2 Dependence on renal dialysis; Z79.899 Other long term (current) drug therapy; I25.2 Old myocardial infarction; Z85.528 Personal history of other malignant neoplasm of kidney; Z90.5 Acquired absence of kidney; Z88.5 Allergy status to narcotic agent
CPT/HCPCS: 10084; 32100

== ENCOUNTER 2017-12-21 17:26 | Inpatient (IN) | payer OTHER, BC ==
[~2017-12-21] VITALS: Ht 180.3 cm; Wt 88.4 kg
--- NOTE | ~2017-12-21 | HC ---
[facility] [place] [address] CONSULTATION Name: KEESHA ZAVALA Room #: 358-P [facility] IN M.R.#: [id number] Admission: 12/21/17 Attend Phys: Magan Sargent MD Discharge: Date of : 55 Report #: [id number] THIS REPORT FOR: //name// CC: Gregory Sargent DATE OF SERVICE: 12/22/2017 HISTORY OF PRESENT ILLNESS: The patient is a 62-year-old male with multiple medical problems including end-stage renal disease, on hemodialysis Sunday, Sunday and Sunday. He has a known history of severe gastroparesis. He has been followed by my partner, Dr. Madrigal over the years. He has multiple hospitalizations for recurrent nausea, vomiting, abdominal pain. He also has a history of chronic narcotic use. The patient began having increasing abdominal pain as well as nausea and vomiting over the last week. The pain is described in his left lower quadrant and periumbilical region. CT scan of the abdomen and pelvis was performed on admission that showed diverticulosis in the descending and sigmoid colon, no evidence of diverticulitis. Post-surgical changes of right nephrectomy were noted. Stable right adrenal nodule was noted consistent with an adenoma, otherwise negative. The patient already is taking Reglan as well as erythromycin on a daily basis as well as Zofran and promethazine. Since admission, he does report improvement. He is not nauseated at this time. No emesis this afternoon. He is tolerating clear liquids currently. His abdominal pain is under better control. In fact, he said he was just beginning to fall asleep when I entered the room. He denies any fevers or chills. Denies any diarrhea recently. No chest pain or shortness of breath. PAST MEDICAL HISTORY: End-stage renal disease, on hemodialysis, history of diabetes, gastroparesis, hypertension, coronary artery disease, anxiety, depression, AV fistula formation, previous foot surgery, chronic narcotic use. REVIEW OF SYSTEMS: As per HPI. ALLERGIES: CODEINE. MEDICATIONS ON ADMISSION: Benadryl, allopurinol, amlodipine, aspirin 325 mg, B complex vitamin, Coreg, Sensipar, Voltaren gel, Colace, erythromycin 400 mg p.o. b.i.d., Neurontin, insulin, Reglan 10 mg p.o. q. 4 hours, Zofran p.r.n., Protonix 40 mg q. day, MiraLax p.r.n. constipation, pravastatin, Phenergan suppository p.r.n. and trazodone. FAMILY HISTORY: Negative for colon cancer. SOCIAL HISTORY: Previous history of cigarette smoking and alcohol use, but he [facility] [address] [place] [address] CONSULTATION Name: KEESHA ZAVALA Room #: 358-P [facility] IN [facility].#: [id number] Admission: 12/21/17 Attend Phys: Magan Sargent MD Discharge: Date of : 55 Report #: [id number] has discontinued both of these. PHYSICAL EXAMINATION: VITAL SIGNS: Temperature is 97.8, pulse 127, blood pressure 143/98, respiratory rate is 18. GENERAL: He is alert and oriented x 3, in no acute distress. HEENT: Sclerae nonicteric. Oropharynx clear. NECK: Supple, without lymphadenopathy. CARDIOVASCULAR: Regular rhythm, tachycardic. CHEST: Clear to auscultation anteriorly bilaterally. ABDOMEN: Soft. He has a Lidoderm patch in the left lower quadrant. He is mildly tender to palpation, soft, nondistended, positive bowel sounds. EXTREMITIES: He has fistulas both in the right and left upper extremities for dialysis. Lower extremities, no edema. LABORATORY DATA: Sodium 143, potassium 4.6, chloride 96, bicarbonate 38, BUN 33, creatinine is 8.7. AST 15, lipase 116, total bilirubin 0.8, alkaline phosphatase 251, ALT 13. Lactic acid level 5.6, it was high of 8.5 on admission last evening, dropped to 3.9. He has had elevated lactic acid levels in the past as well. WBC is 22.1, previous was 15.7. In looking back at the computer, his white blood cell count is always elevated, hemoglobin 14.9, MCV 79.1, platelet count is 223. ASSESSMENT AND PLAN: 1. Nausea, vomiting, abdominal pain. The patient with a long history of gastroparesis and apparently has had recurrent hospitalizations. Agree with current regimen and IV fluids, antinausea medications as well as IV Reglan scheduled, which he is receiving. He is improving at this time. He is able to tolerate liquids today and states he is feeling better, less nauseated and no emesis. Would recommend advancing diet slowly as tolerated. The patient is already on Reglan and erythromycin at home as well as several antinausea medications. 2. Abdominal pain, etiology is unclear. CT scan was essentially negative. The patient does have an elevated white count, but he has had an elevated white count multiple times in the past in the computer. He is afebrile at this time. There is no evidence of infection currently. He is also improving from an abdominal pain standpoint. He states the Lidoderm patch is helpful. We will continue to monitor closely. Thank you for allowing me to participate in his care. <ELECTRONICALLY SIGNED> By: Live Valera MD 12/26/17 1043 1443 1751 Live Valera MD /nt
--- NOTE | ~2017-12-21 | HC ---
[facility] [place] [address] CONSULTATION Name: KEESHA ZAVALA Room #: 358-P [facility] IN M.R.#: [id number] Admission: 12/21/17 Attend Phys: Magan Sargent MD Discharge: Date of : 55 Report #: [id number] THIS REPORT FOR: //name// CC: Gregory Sargent REASON FOR CONSULTATION: End-stage renal disease. REASON FOR PRESENTATION: Flare ups of his gastroparesis. HISTORY OF PRESENT ILLNESS: Well known patient to me. He suffers from longstanding diabetes mellitus and hypertension. He dialyzes every Sunday, Sunday and Sunday. He has severe gastroparesis due to his diabetes mellitus, and he is also known to have chronic narcotic abuse. He presented with nausea, lack of sleep, vomiting of few days' duration. He was not able to keep anything down as he stated. He takes oxycodone. He is also on promethazine and Reglan. He tried all of those without any success and presented for further evaluation and management. Unfortunately, he suffers from chronic narcotic abuse, and this has complicated his treatment plans. I am being asked to evaluate for his usual dialysis needs. PAST MEDICAL HISTORY: 1. Diabetes mellitus. 2. Hypertension. 3. Coronary artery disease. 4. Anxiety. 5. Depression. 6. Gastroparesis. 7. AV fistula. 8. Foot surgery. FAMILY HISTORY: Significant for diabetes mellitus and hypertension. SOCIAL HISTORY: Denies drug or alcohol abuse. He continues to smoke. MEDICATIONS: 1. Allopurinol. 2. Amlodipine. 3. Aspirin. 4. Cinacalcet. 5. Reglan. 6. Promethazine. 7. Trazodone. 8. Oxycodone. REVIEW OF SYSTEMS: GENERAL: No fever or chills, but significant for weakness. [facility] [address] [place] [address] CONSULTATION Name: KEESHA ZAVALA Liad Room #: 358-P [facility] IN ..#: [id number] Admission: 12/21/17 Attend Phys: Magan Sargent MD Discharge: Date of : 55 Report #: [id number] CARDIOVASCULAR: No chest pain or palpitation. PULMONARY: No cough or hemoptysis. GASTROINTESTINAL: As per the history of present illness. GENITOURINARY: No frequency, no urgency. He makes little urine: PHYSICAL EXAMINATION: GENERAL: He is alert, oriented, in significant distress. Crying in pain. HEAD AND NECK: No jugular venous distention, no bruit, no thyromegaly. CHEST: Clear to auscultation bilaterally. CARDIOVASCULAR: Regular with no rub. ABDOMEN: Soft, nontender. LOWER EXTREMITIES: No edema. LABORATORY DATA: White blood cell count 15.7. Creatinine 7. IMAGING: CT abdomen and pelvis reviewed, no acute finding. ASSESSMENT, IMPRESSION AND PLAN: 1. End-stage renal disease. 2. Gastroparesis. 3. Diabetes mellitus. 4. Hypertension. 5. Coronary artery disease. 6. Leukocytosis. 7. We will continue with the usual dialysis regimen every Sunday, Sunday and Sunday. 8. Symptomatic treatment of his gastroparesis. 9. Try to avoid narcotics as much as possible. 10. Resume blood pressure medication. 11. Resume diabetic medications. 12. Potassium was replaced by the admitting team. <ELECTRONICALLY SIGNED> By: Anthony Argueta MD 12/26/17 0817 0750 Anthony Argueta MD /nt
[~2017-12-21 17:26] MED LIST changes: +LIDODERM1 EACH TOP; +SCOPOLAMINE1 EACH TRANSDERM
[2017-12-21 17:31] VITALS: BP 134/65
[2017-12-21 19:20] LABS: ABSOLUTE NEUTROPHILS 14.4 thou/uL (1.4-8.2); BASOPHILS 0.4 % (0.0-2.0); EOSINOPHILS 0.1 % (0.0-3.0); HEMOGLOBIN 15.1 gm/dL (14.0-18.0); LYMPHOCYTES 3.5 % (24.0-44.0); MCH 25.5 pg (26.0-34.0); MCHC 32.1 g/dL (28.0-37.0); MCV 79.5 fL (80.0-100.0); MONOCYTES 4.2 % (1.0-8.0); POLYS 91.8 % (36.0-66.0); RBC 5.92 mil/uL (4.50-6.00); RDW 15.8 % (10.5-14.5); WBC 15.7 thou/uL (4.0-11.0)
[2017-12-21 19:29] LABS: CALCIUM 9.6 mg/dL (8.5-10.1); POTASSIUM 3.2 mmol/L (3.5-5.1)
[2017-12-21 19:34] LABS: ALBUMIN 4.5 g/dL (3.4-5.0); DIRECT BILIRUBIN 0.2 mg/dL (<0.1-0.3); TOTAL BILIRUBIN 0.8 mg/dL (<0.1-1.0); TOTAL PROTEIN 9.8 g/dL (6.4-8.2)
[2017-12-21 19:40] LABS: PLATELET COUNT 197 thou/uL (150-400)
[2017-12-21 20:33] VITALS: BP 134/65
[2017-12-21 20:54] VITALS: BP 157/101
[2017-12-21 21:25] VITALS: BP 178/107
[2017-12-21 23:44] VITALS: BP 184/101
[2017-12-22 04:18] VITALS: BP 156/96
[2017-12-22 07:20] VITALS: BP 147/95
[2017-12-22 08:23] LABS: HEMATOCRIT 46.5 % (42.0-52.0); HEMOGLOBIN 14.9 gm/dL (14.0-18.0); MCH 25.3 pg (26.0-34.0); MCV 79.1 fL (80.0-100.0); RBC 5.88 mil/uL (4.50-6.00); RDW 16.1 % (10.5-14.5); WBC 22.1 thou/uL (4.0-11.0)
[2017-12-22 08:37] LABS: ALBUMIN 4.2 g/dL (3.4-5.0); CALCIUM 9.4 mg/dL (8.5-10.1); TOTAL BILIRUBIN 0.8 mg/dL (<0.1-1.0); TOTAL PROTEIN 8.4 g/dL (6.4-8.2)
[2017-12-22 08:41] LABS: POTASSIUM 4.6 mmol/L (3.5-5.1)
[2017-12-22 08:42] LABS: CREATININE 8.7 mg/dL (0.7-1.3)
[2017-12-22 11:11] VITALS: BP 143/98
[2017-12-22 15:30] VITALS: BP 141/96
[2017-12-22 19:42] VITALS: BP 88/52
[2017-12-23 04:30] VITALS: BP 82/52
[2017-12-23 07:12] VITALS: BP 83/52
[2017-12-23 10:40] LABS: HEMATOCRIT 36.6 % (42.0-52.0); MCH 25.3 pg (26.0-34.0); MCHC 32.1 g/dL (28.0-37.0); MCV 78.7 fL (80.0-100.0); PLATELET COUNT 166 thou/uL (150-400); RBC 4.65 mil/uL (4.50-6.00); RDW 15.7 % (10.5-14.5); WBC 22.9 thou/uL (4.0-11.0)
[2017-12-23 10:42] LABS: HEMOGLOBIN 11.8 gm/dL (14.0-18.0)
[2017-12-23 10:59] LABS: ALBUMIN 3.1 g/dL (3.4-5.0); CREATININE 10.5 mg/dL (0.7-1.3); MAGNESIUM 2.3 mg/dL (1.8-2.4); POTASSIUM 5.1 mmol/L (3.5-5.1); TOTAL BILIRUBIN 0.6 mg/dL (<0.1-1.0); TOTAL PROTEIN 7.1 g/dL (6.4-8.2)
[2017-12-23 11:08] VITALS: BP 122/81
[2017-12-23 12:01] LABS: ABSOLUTE NEUTROPHILS 20.2 thou/uL (1.4-8.2); ANISOCYTOSIS 1+; METAMYELOCYTES 1 %
[2017-12-23 15:31] VITALS: BP 99/60
[2017-12-23 20:00] VITALS: BP 144/87
[2017-12-24 04:00] VITALS: BP 84/67
[2017-12-24 17:30] VITALS: BP 112/77
[2017-12-24 19:10] VITALS: BP 82/54
[2017-12-25 03:54] VITALS: BP 95/57
[2017-12-25 05:35] LABS: ABSOLUTE NEUTROPHILS 6.4 thou/uL (1.4-8.2); EOSINOPHILS 2.9 % (0.0-3.0); HEMATOCRIT 34.5 % (42.0-52.0); LYMPHOCYTES 15.6 % (24.0-44.0); MCH 25.5 pg (26.0-34.0); MCV 79.8 fL (80.0-100.0); PLATELET COUNT 144 thou/uL (150-400); POLYS 73.5 % (36.0-66.0); RBC 4.33 mil/uL (4.50-6.00); RDW 16.2 % (10.5-14.5); WBC 8.8 thou/uL (4.0-11.0)
[2017-12-25 08:32] VITALS: BP 91/62
[2017-12-25 11:48] VITALS: BP 147/90
[2017-12-25 15:42] VITALS: BP 94/60
[2017-12-25 20:02] VITALS: BP 98/57
[2017-12-25 23:54] VITALS: BP 85/55
[2017-12-26 04:14] VITALS: BP 113/73
[2017-12-26] MEDS ORDERED: PANTOPRAZOLE SO40 M1 PO (07:31)
[2017-12-26] MEDS ORDERED: AUGMENTIN 500-1 EACH PO (07:31)
[2017-12-26 07:36] VITALS: BP 113/73
[2017-12-26 07:52] VITALS: BP 123/82
[2017-12-26 12:07] VITALS: BP 123/82
== END 2017-12-26 17:20 | disposition home or self-care (01) | DRG 871 ==
LOC: ER 17:26 → 3W 20:07 → EROBS 20:07 → 3W 21:16 → ENTRNSPT 12-26 16:50 → 3W 12-26 17:20
PROVIDERS: Emergency Medicine; Internal Medicine; Nurse Practitioner Family; Specialist
PROC: 5A1D70Z Performance of Urinary Filtration, Intermittent, Less than 6 Hours Per Day (ICD-10-PCS; principal; 2017-12-22)
PROC: 5A1D70Z Performance of Urinary Filtration, Intermittent, Less than 6 Hours Per Day (ICD-10-PCS; 2017-12-24)
PROC: 0DB58ZX Excision of Esophagus, Via Natural or Artificial Opening Endoscopic, Diagnostic (ICD-10-PCS; 2017-12-25)
PROC: 0DB98ZX Excision of Duodenum, Via Natural or Artificial Opening Endoscopic, Diagnostic (ICD-10-PCS; 2017-12-25)
PROC: 0DB68ZX Excision of Stomach, Via Natural or Artificial Opening Endoscopic, Diagnostic (ICD-10-PCS; 2017-12-25)
PROC: 5A1D70Z Performance of Urinary Filtration, Intermittent, Less than 6 Hours Per Day (ICD-10-PCS; 2017-12-26)
DX: A41.9 Sepsis, unspecified organism (principal); N18.6 End stage renal disease; R65.21 Severe sepsis with septic shock; I12.0 Hypertensive chronic kidney disease with stage 5 chronic kidney disease or end stage renal disease; E87.2 Acidosis; K31.84 Gastroparesis; E78.5 Hyperlipidemia, unspecified; E11.43 Type 2 diabetes mellitus with diabetic autonomic (poly)neuropathy; G89.4 Chronic pain syndrome; K21.0 Gastro-esophageal reflux disease with esophagitis; K22.2 Esophageal obstruction; K29.70 Gastritis, unspecified, without bleeding; K29.80 Duodenitis without bleeding; E11.22 Type 2 diabetes mellitus with diabetic chronic kidney disease; N40.0 Benign prostatic hyperplasia without lower urinary tract symptoms; K44.9 Diaphragmatic hernia without obstruction or gangrene; I25.10 Atherosclerotic heart disease of native coronary artery without angina pectoris; F41.9 Anxiety disorder, unspecified; F32.9 Major depressive disorder, single episode, unspecified; M10.9 Gout, unspecified; I25.2 Old myocardial infarction; Z87.828 Personal history of other (healed) physical injury and trauma; Z85.528 Personal history of other malignant neoplasm of kidney; Z90.5 Acquired absence of kidney; Z87.891 Personal history of nicotine dependence; Z99.2 Dependence on renal dialysis; Z79.82 Long term (current) use of aspirin; Z79.4 Long term (current) use of insulin; Z79.899 Other long term (current) drug therapy; Z88.5 Allergy status to narcotic agent; Z83.3 Family history of diabetes mellitus; Z82.49 Family history of ischemic heart disease and other diseases of the circulatory system
CPT/HCPCS: 10779; 32100; 62110; 62900; 70005

== ENCOUNTER 2018-03-23 18:44 | Emergency (ER) | payer OTHER, BC ==
[~2018-03-23] VITALS: Ht 180.3 cm; Wt 86.2 kg
--- NOTE | ~2018-03-23 | EKG ---
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
[~2018-03-23 18:44] MED LIST changes: +AUGMENTIN 500-1 EACH PO; +PANTOPRAZOLE SO40 M1 PO
[2018-03-23 19:21] LABS: ABSOLUTE NEUTROPHILS 9.3 thou/uL (1.4-8.2); EOSINOPHILS 1.7 % (0.0-3.0); HEMATOCRIT 38.6 % (42.0-52.0); HEMOGLOBIN 12.4 gm/dL (14.0-18.0); LYMPHOCYTES 10.7 % (24.0-44.0); MCH 23.8 pg (26.0-34.0); MCV 74.4 fL (80.0-100.0); MONOCYTES 7.3 % (1.0-8.0); PLATELET COUNT 200 thou/uL (150-400); POLYS 79.3 % (36.0-66.0); RBC 5.19 mil/uL (4.50-6.00); RDW 18.2 % (10.5-14.5); WBC 11.7 thou/uL (4.0-11.0)
[2018-03-23 19:30] LABS: ANION GAP 8 mmol/L (7-16); BUN 40 mg/dL (7-18); CHLORIDE 98 mmol/L (98-107); CO2 32 mmol/L (21-32); CREATININE 8.6 mg/dL (0.7-1.3); GLUCOSE 81 mg/dL (74-106); POTASSIUM 3.9 mmol/L (3.5-5.1); SODIUM 138 mmol/L (136-145)
[2018-03-23 19:38] LABS: ALBUMIN 3.2 g/dL (3.4-5.0); SGOT 15 U/L (15-37); SGPT 13 U/L (30-65); TOTAL BILIRUBIN 0.7 mg/dL (<0.1-1.0); TOTAL PROTEIN 7.6 g/dL (6.4-8.2); TROPONIN-I <0.06 ng/mL (<0.06)
[2018-03-23 19:47] LABS: ANISOCYTOSIS 2+
[2018-03-23 19:48] LABS: HYPOCHROMASIA 1+; TARGET CELLS 1+
[2018-03-23 21:28] VITALS: BP 95/62
== END 2018-03-23 21:34 | disposition home or self-care (01) ==
LOC: ER 18:44
PROVIDERS: Physician Assistant
DX: I95.9 Hypotension, unspecified (principal); I12.0 Hypertensive chronic kidney disease with stage 5 chronic kidney disease or end stage renal disease; E11.22 Type 2 diabetes mellitus with diabetic chronic kidney disease; N18.6 End stage renal disease; E11.43 Type 2 diabetes mellitus with diabetic autonomic (poly)neuropathy; K31.84 Gastroparesis; E78.5 Hyperlipidemia, unspecified; F41.9 Anxiety disorder, unspecified; F32.9 Major depressive disorder, single episode, unspecified; K21.9 Gastro-esophageal reflux disease without esophagitis; M10.9 Gout, unspecified; Z87.891 Personal history of nicotine dependence; Z99.2 Dependence on renal dialysis; Z88.5 Allergy status to narcotic agent; Z90.5 Acquired absence of kidney; Z85.528 Personal history of other malignant neoplasm of kidney; Z79.4 Long term (current) use of insulin

== ENCOUNTER 2018-09-27 11:57 | Inpatient (IN) | payer OTHER, BC ==
[~2018-09-27] VITALS: Ht 182.9 cm; Wt 85.3 kg
--- NOTE | ~2018-09-27 | HC ---
[facility] [place] [address] CONSULTATION Name: KEESHA ZAVALA Room #: 454-P [facility] IN M.R.#: [id number] Admission: 09/27/18 Attend Phys: Magan Sargent MD Discharge: Date of : 55 Report #: [id number] THIS REPORT FOR: //name// CC: Magan Sargent DATE OF SERVICE: 09/28/2018 REASON FOR THE CONSULTATION: End-stage renal disease. REASON FOR PRESENTATION: Not feeling well post-hemodialysis. HISTORY OF PRESENT ILLNESS: A well-known patient to me. He has end-stage renal disease, maintained on hemodialysis every Sunday, Sunday and Sunday. He is also known to have ongoing GI issues. He had a full GI evaluation in the past. He presented post-hemodialysis with nausea and vomiting. He had leukocytosis. I am being consulted to manage his end-stage renal disease. He denies fever or chills. He did finish his treatment yesterday. Primary team has admitted the patient to further evaluate and consulted me to manage his end-stage renal disease. PAST MEDICAL HISTORY: 1. End-stage renal disease. 2. Diabetes mellitus. 3. Hypertension. 4. Right-sided nephrectomy due to renal cell carcinoma. PAST SURGICAL HISTORY: 1. Nephrectomy. 2. Foot surgery. 3. Left AV fistula. ALLERGIES: CODEINE. SOCIAL HISTORY: He denies drug or alcohol abuse. FAMILY HISTORY: Significant for diabetes mellitus. MEDICATIONS: 1. Carvedilol. 2. Gabapentin. 3. Trazodone. 4. Sevelamer. 5. Metoclopramide. 6. Cinacalcet. REVIEW OF SYSTEMS: [facility] [address] [place] [address] CONSULTATION Name: KEESHA ZAVALA Room #: 454-P ADM IN .R.#: [id number] Admission: 09/27/18 Attend Phys: Magan Sargent MD Discharge: Date of : 55 Report #: [id number] GENERAL: No fever or chills, but significant for weakness. CARDIOVASCULAR: No chest pain or palpitation. PULMONARY: No cough or hemoptysis. GASTROINTESTINAL: As per the history of present illness. GENITOURINARY: He is anuric. PHYSICAL EXAMINATION: GENERAL: Alert, oriented, in mild distress. VITAL SIGNS: Temperature 36.4, blood pressure 131/81. HEAD AND NECK: No jugular venous distention. CHEST: No crackles. CARDIOVASCULAR: No rub. ABDOMEN: Soft, nontender. LOWER EXTREMITIES: No edema. LABORATORY DATA: Reviewed. White blood cell count 22.5. Sodium 137, potassium 3.9. Albumin was 3.1. Urine drug screen is negative. Chest x-ray negative. ASSESSMENT, IMPRESSION AND PLAN: 1. End-stage renal disease. 2. Leukocytosis. 3. Known gastroparesis. 4. Diabetes mellitus. 5. Hypertension. 6. We will defer the management of his ongoing GI issues to the primary team. 7. Hemodialysis every Sunday, Sunday and Sunday. 8. Investigation of his leukocytosis, potential CT abdomen and pelvis if needed. By: 0917 1723 Anthony Argueta MD /nt
[~2018-09-27 11:57] MED LIST changes: +CARVEDILOL3.125 MG PO; -COREG25 MG PO
[2018-09-27 11:58] VITALS: BP 122/76
[2018-09-27 14:24] LABS: HEMATOCRIT 41.1 % (42.0-52.0); HEMOGLOBIN 13.4 gm/dL (14.0-18.0); MCH 24.6 pg (26.0-34.0); MCHC 32.6 g/dL (28.0-37.0); MCV 75.5 fL (80.0-100.0); PLATELET COUNT 156 thou/uL (150-400); RBC 5.44 mil/uL (4.50-6.00); RDW 16.5 % (10.5-14.5); WBC 22.5 thou/uL (4.0-11.0)
[2018-09-27 14:31] LABS: ANION GAP 12 mmol/L (7-16); BUN 55 mg/dL (7-18); CALCIUM 8.8 mg/dL (8.5-10.1); CHLORIDE 90 mmol/L (98-107); CO2 35 mmol/L (21-32); CREATININE 10.4 mg/dL (0.7-1.3); GLUCOSE 114 mg/dL (74-106); POTASSIUM 3.9 mmol/L (3.5-5.1); SODIUM 137 mmol/L (136-145)
[2018-09-27 14:39] LABS: ALBUMIN 3.1 g/dL (3.4-5.0); SGOT 12 U/L (15-37); SGPT 13 U/L (30-65); TOTAL BILIRUBIN 0.7 mg/dL (<0.1-1.0); TOTAL PROTEIN 8.1 g/dL (6.4-8.2); TROPONIN-I <0.06 ng/mL (<0.06)
[2018-09-27 14:44] LABS: ABSOLUTE NEUTROPHILS 21.8 thou/uL (1.4-8.2)
[2018-09-27 14:45] LABS: ANISOCYTOSIS 2+; MICROCYTES 1+; POLYCHROMASIA OCCASIONAL; TARGET CELLS FEW
[2018-09-27] MEDS ORDERED: PROTONIX40 M1 PO (15:26)
[2018-09-27] MEDS ORDERED: OXYCODONE HCL10 MG PO (15:26)
[2018-09-27 15:30] VITALS: BP 165/130
[2018-09-27 16:00] VITALS: BP 148/83
[2018-09-27 16:52] VITALS: BP 154/78
--- NOTE | 2018-09-27 19:37 | NUR ---
Received pt from the ER, alert and oriented, extra time needs to be given to process the questions and respoind. Oral medication given and placed on telemetry. No complaints or issues identified.
[2018-09-27 19:47] VITALS: BP 130/92
[2018-09-28 04:24] VITALS: BP 110/72
--- NOTE | 2018-09-28 05:38 | NUR ---
Pt. rested quietly very little during the night when checked on during frequent rounds. He wanted to sit up in the chair all night. He c/o chronic nausea and abdominal pain. Po pain meds and scheduled po nausea meds given (see emar) with some relief.
[2018-09-28 08:55] VITALS: BP 131/81
--- NOTE | 2018-09-28 10:41 | EKG ---
[address] [employer] [place] [address] ELECTROCARDIOGRAM REPORT Name: KEESHA ZAVALA Room #: 454-P ADM IN M.R.#: [id number] Admission: 09/27/18 Attend Phys: Magan Sargent MD Discharge: Date of : 55 Report #: [id number] THIS REPORT FOR: //name// [facility] ED Test Date: 2018-09-27 Test Time: 12:12:21 Pat Name: KEESHA ZAVALA Department: Room: [facility] Gender: M Delivery Nurse: WILIAM : 1955 Requested By: Nohemi Clayton Order Number: [id number] MD: Valeriy Frazier Measurements Intervals [place] Rate: 130 P: 51 DC: 119 QRS: 11 QRSD: 82 T: 57 QT: 321 QTc: 472 Interpretive Statements Sinus tachycardia Multiform ventricular premature complexes Left atrial enlargement Nonspecific ST segment abnormalities Compared to ECG 03/23/2018 19:01:48 Ventricular premature complex(es) now present Sinus rhythm no longer present T-wave abnormality no longer present Electronically Signed On 09-28-2018 10:41:31 [employer] by Valeriy Frazier [email or web address] <ELECTRONICALLY SIGNED> By: Valeriy Frazier MD 09/28/18 1041 11 121 Valeriy Frazier MD /EPI
[2018-09-28 12:06] LABS: HEMATOCRIT 39.4 % (42.0-52.0); HEMOGLOBIN 12.7 gm/dL (14.0-18.0); MCH 24.8 pg (26.0-34.0); MCHC 32.3 g/dL (28.0-37.0); MCV 76.8 fL (80.0-100.0); RBC 5.13 mil/uL (4.50-6.00); RDW 16.5 % (10.5-14.5); WBC 23.1 thou/uL (4.0-11.0)
[2018-09-28 13:25] VITALS: BP 104/70
--- NOTE | 2018-09-28 15:56 | NUR ---
TOWARDS POC PT A/O X4, VSS, NAUSEA AND PAIN MANAGED BY MEDS. NO CONCERNS VOICED AT THIS TIME WILL CONTINUE TO MONITOR.
[2018-09-28 20:28] VITALS: BP 129/87
[2018-09-29 03:44] VITALS: BP 100/63
--- NOTE | 2018-09-29 05:15 | NUR ---
Pt. rested quietly at intervals during the night when checked on during frequent rounds. Spoke to Dr. Sargent this shift as pt. c/o heartburn. Also, Татьяна (sig. other) concerned that the gabapentin med is causing pt. some hallucinations. This nurse has not observed it, but expressed this to the DrJalen (see new orders in cpoe). No c/o any nausea or abdominal pain.
[2018-09-29 08:42] VITALS: BP 100/61
--- NOTE | 2018-09-29 12:53 | NUR ---
TOWARDS POC PT A/O X4, VSS, AFERBILE, NO EPISODES OF NV, DENIES PAIN. PT CLAIMS HE FEELS BETTER. NO CONCERNS VOICED. WILL CONTINUE TO MONITOR.
[2018-09-29 13:39] VITALS: BP 104/61
[2018-09-29 18:53] VITALS: BP 115/73
[2018-09-30 03:37] VITALS: BP 117/74
--- NOTE | 2018-09-30 05:30 | NUR ---
Assumed care at 1845. Pt resting in bed. Hasnt had an episode on N/V. Has been NPO since midnight. EGD scheduled for today. No identified needs at the moment. Will continue to monitor.
[2018-09-30 06:12] LABS: HEMATOCRIT 33.9 % (42.0-52.0); HEMOGLOBIN 10.8 gm/dL (14.0-18.0); MCH 24.2 pg (26.0-34.0); MCV 75.8 fL (80.0-100.0); RBC 4.47 mil/uL (4.50-6.00); RDW 16.4 % (10.5-14.5); WBC 11.2 thou/uL (4.0-11.0)
[2018-09-30 06:35] LABS: ALBUMIN 2.5 g/dL (3.4-5.0); TOTAL BILIRUBIN 0.6 mg/dL (<0.1-1.0); TOTAL PROTEIN 6.1 g/dL (6.4-8.2)
[2018-09-30 06:38] LABS: CREATININE 15.1 mg/dL (0.7-1.3)
[2018-09-30 06:40] LABS: CALCIUM 6.4 mg/dL (8.5-10.1)
--- NOTE | 2018-09-30 16:12 | NUR ---
PT ADMITTED RELATED TO SOA 7 DAYS. CM REVIEWED CHART AND SPOKE WITH CARE TEAM. CM MET WITH PT AT BEDSIDE THIS DAY. PT IS A&O X4. CM ROLE INTRODUCED. PT INDICATED HE LIVES IN A HOUSE WITH HIS SIG OTHER WITH 6 STEPS TO ENTER AND TWO SETS OF 5 STEPS INSIDE. 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 PT INDICATED NO DME OR HH HX. PT INDICATED CONFIRMED THAT HE GOES TO DIALYSIS MWF [address] [facility]. PT INDICATED THAT HE GETS TO DIALYSIS VIA [facility] [employer] [facility]. PT INDICATED HE PLANS TO RETURN HOME ONCE MEDICALLY STABLE. CM TO FOLLOW INDICATED WITH DC PLANNING.
[2018-09-30 16:35] VITALS: BP 145/62
--- NOTE | 2018-09-30 19:26 | NUR ---
PT STABLE THROUGHOUT SHIFT. PT HAD EGD WHICH HE TOLERATED WELL. PT C/O CP DURING DIALYSIS, CALLED PHYSICIAN AND RECIEVED ORDERS FRO MEDICATION. WILL CONTINUE TO MONITOR.
[2018-09-30 22:40] VITALS: BP 118/68
[2018-10-01 04:37] VITALS: BP 101/71
--- NOTE | 2018-10-01 07:07 | NUR ---
Assumed care at 1845. Pt resting in bed. Pt did well with dialysis. VSS. Zofran seems to have help resolve the nausea. No identified needs at the moment. Call light within reach. Will continue to monitor.
[2018-10-01 07:28] VITALS: BP 103/66
[2018-10-01] MEDS ORDERED: OXYCODONE HCL10 MG PO (08:01)
[2018-10-01] MEDS ORDERED: DIFLUCAN100 MG PO (08:03)
--- NOTE | 2018-10-01 09:49 | NUR ---
CARE TEAM INDICATED THAT PT IS MEDICALLY STABLE TO DISCHARGE HOME THIS DAY. CM TO FAX FLOW SHEET TO [facility]. NO OTHER NEEDS IDENTIFIED. NO OTHER CM INTERVENTION INDICATED. CASE CLOSED.
[2018-10-01 10:56] VITALS: BP 103/66
--- NOTE | 2018-10-01 14:30 | NUR ---
ASSUMED CARE AT 0700. AXOX4. SEEN BY AT BEDSIDE. RECEIVED AN ORDER TO D/C PT HOME. PER PT, DOES NOT GET OFF WORK TILL AFTER 5. WAITING TRANSPORTATION. NO S/S ACUTE DISTRESS NOTED OR REPORTED AT THIS TIME.
[2018-10-01 14:58] VITALS: BP 96/62
--- NOTE | 2018-10-01 18:05 | PATH ---
[facility] [place] [address] [address] [place] [address] PATHOLOGY RPT PROCEDURE Name: KEESHA ZAVALA Lida Room #: 454-P [facility] IN M.R.#: [id number] Admission: 09/27/18 Date of : 55 Discharge: 10/01/18 Report #: [id number] Path Case #: [id number] [facility] Accession Number: [id number] . 01 Material submitted: . DUODENUM BIOPSY . 01 Clinical history: . Pre-OP DX: Nausea, vomiting, history of gastroparesis Post-OP DX: Duodenitis with erosions, esophagitis . 02 Diagnosis: Small bowel mucosa, duodenum, endoscopic biopsy: - Fundic-type metaplasia associated with mild active inflammation, consistent with mild active peptic duodenitis. - Negative for villous blunting or increase in intraepithelial lymphocytes. - Negative for dysplasia. (IUV/db; 10/01/2018) QTP/10/01/2018 . 02 Electronically signed: . Nannette Sellers MD, Pathologist NPI- [id number] . 01 Gross description: . Received in formalin labeled "John Paul Keesha, duodenum biopsy," are 2 segments of cueto soft tissue measuring 0.9 x 0.3 x 0.3 cm in aggregate dimensions and ranging from 0.4 to 0.5 cm in maximum dimension. The specimen is submitted entirely in cassette A1. (TSD; 09/30/2018) TOB/TOB . 02 Pathologist provided ICD-10: K29.80 . 02 CPT . 533026 Specimen Comment: A courtesy copy of this report has been sent to Specimen Comment: [phone], . Specimen Comment: Report sent to / DR MARTINEZ Performed at: [address] [id number] MD Ta Hilton MD Phone: [phone] Performed at: [address] [address] PATHOLOGY RPT PROCEDURE Name: KEESHA ZAVALA Room #: 454-P DIS IN M.R.#: [id number] Admission: 09/27/18 Date of : 55 Discharge: 10/01/18 Report #: [id number] Path Case #: [id number] [address] [place] [address] [id number] MD Nannette Sellers MD Phone: [phone]
--- NOTE | 2018-10-04 09:09 | PATH ---
[facility] [address] [place] [address] PATHOLOGY RPT PROCEDURE Name: KEESHA ZAVALA Room #: 454-P [facility] IN .R.#: [id number] Admission: 09/27/18 Date of : 55 Discharge: 10/01/18 Report #: [id number] Path Case #: [id number] Note [facility] Accession Number: [id number] TESTS RESULT FLAG UNITS REF RANGE LAB Clinician Provided Cytology Information No. of containers..01 Other (Miscellaneous) Source: ESOPHAGEAL BRUSHING DIAGNOSIS: 02 ESOPHAGEAL BRUSHING NEGATIVE FOR MALIGNANT CELLS. REACTIVE SQUAMOUS CELLS ARE PRESENT. FUNGAL ORGANISMS MORPHOLOGICALLY COMPATIBLE WITH "GABBI" SPECIES ARE PRESENT. Comment: GMS-Fungal special stain is performed and it shows pseudohyphae and budding yeasts compatible with Gabbi species. Pathologist ICD10: 02 B37.81 Signed out by: Nannette Sellers MD, Pathologist NPI- [id number] Performed by: Javier Hunt, [employer] ([facility]) Gross description: 01 2ML, COLORLESS, CLEAR /LCS FLAG LEGEND: L-Low Normal,H-High Normal,LL-Alert Low,HH-Alert High <-Panic Low,>-Panic High,A-Abnormal,AA-Critical Abnormal Performed at: 01 [facility] [address] [place] [address] Ta Hilton MD, [address] [address] Nannette Sellers MD, Specimen Comment: A courtesy copy of this report has been sent to Specimen Comment: [phone]. Specimen Comment: Report sent to Specimen Comment: A duplicate report has been generated due to demographic updates. Performed at: 01 [facility] [address] [place] [address] PATHOLOGY RPT PROCEDURE Name: KEESHA ZAVALA Room #: 454-P DIS IN M.R.#: [id number] Admission: 09/27/18 Date of : 55 Discharge: 10/01/18 Report #: [id number] Path Case #: [id number] [facility] [place] [address], [place], [place] [id number] MD Ta Hilton MD Phone: [phone]
== END 2018-10-01 17:45 | disposition home or self-care (01) | DRG 380 ==
LOC: ER 11:57 → 4W 15:19 → EROBS 15:19 → 4W 16:17 → ENTRNSPT 10-01 17:04 → 4W 10-01 17:45
PROVIDERS: Hospitalist; Nurse Practitioner Family; ADMIT Family Medicine
PROC: 0DD58ZX Extraction of Esophagus, Via Natural or Artificial Opening Endoscopic, Diagnostic (ICD-10-PCS; principal; 2018-09-30)
PROC: 5A1D70Z Performance of Urinary Filtration, Intermittent, Less than 6 Hours Per Day (ICD-10-PCS; principal; 2018-09-30)
PROC: 0DB98ZX Excision of Duodenum, Via Natural or Artificial Opening Endoscopic, Diagnostic (ICD-10-PCS; principal; 2018-09-30)
DX: K22.10 Ulcer of esophagus without bleeding (principal); N18.6 End stage renal disease; B37.81 Candidal esophagitis; I12.0 Hypertensive chronic kidney disease with stage 5 chronic kidney disease or end stage renal disease; K29.80 Duodenitis without bleeding; E11.22 Type 2 diabetes mellitus with diabetic chronic kidney disease; E78.5 Hyperlipidemia, unspecified; N40.0 Benign prostatic hyperplasia without lower urinary tract symptoms; F32.9 Major depressive disorder, single episode, unspecified; F41.9 Anxiety disorder, unspecified; K21.9 Gastro-esophageal reflux disease without esophagitis; M10.9 Gout, unspecified; E66.9 Obesity, unspecified; E11.43 Type 2 diabetes mellitus with diabetic autonomic (poly)neuropathy; K31.84 Gastroparesis; F17.210 Nicotine dependence, cigarettes, uncomplicated; Z68.25 Body mass index [BMI] 25.0-25.9, adult; Z85.528 Personal history of other malignant neoplasm of kidney; Z90.5 Acquired absence of kidney; I25.2 Old myocardial infarction; Z99.2 Dependence on renal dialysis; Z79.899 Other long term (current) drug therapy; Z88.5 Allergy status to narcotic agent; Z83.3 Family history of diabetes mellitus
CPT/HCPCS: 10045; 32100; 62110; 62900; 70005

== ENCOUNTER 2018-10-07 20:58 | Inpatient (IN) | payer OTHER, BC ==
[~2018-10-07] VITALS: Ht 180.3 cm; Wt 84.4 kg
[~2018-10-07 20:58] MED LIST changes: +DIFLUCAN100 MG PO
[2018-10-07 21:00] VITALS: BP 97/62
--- NOTE | 2018-10-07 21:32 | NUR ---
DIFFICULTIES INSTERTING AN IV. DR GABRIEL WILL ATTEMPT
[2018-10-07 22:04] LABS: HEMATOCRIT 40.3 % (42.0-52.0); HEMOGLOBIN 13.1 gm/dL (14.0-18.0); MCH 24.4 pg (26.0-34.0); MCHC 32.5 g/dL (28.0-37.0); MCV 75.3 fL (80.0-100.0); PLATELET COUNT 161 thou/uL (150-400); RBC 5.35 mil/uL (4.50-6.00); RDW 16.7 % (10.5-14.5); WBC 27.4 thou/uL (4.0-11.0)
[2018-10-07 22:13] LABS: ANION GAP 17 mmol/L (7-16); BUN 21 mg/dL (7-18); CALCIUM 8.2 mg/dL (8.5-10.1); CHLORIDE 92 mmol/L (98-107); CO2 30 mmol/L (21-32); CREATININE 6.4 mg/dL (0.7-1.3); GLUCOSE 189 mg/dL (74-106); POTASSIUM 3.6 mmol/L (3.5-5.1); SODIUM 139 mmol/L (136-145)
[2018-10-07 22:21] LABS: ALBUMIN 3.1 g/dL (3.4-5.0); LIPASE 57 U/L (73-393); MAGNESIUM 2.1 mg/dL (1.8-2.4); SGOT 12 U/L (15-37); SGPT 11 U/L (30-65); TOTAL BILIRUBIN 0.6 mg/dL (<0.1-1.0); TOTAL PROTEIN 8.4 g/dL (6.4-8.2); TROPONIN-I <0.06 ng/mL (<0.06)
[2018-10-07 22:28] LABS: ABSOLUTE NEUTROPHILS 25.2 thou/uL (1.4-8.2); ANISOCYTOSIS 1+
[2018-10-07 22:36] VITALS: BP 120/80
[2018-10-07 23:12] VITALS: BP 118/77
[2018-10-07 23:51] VITALS: BP 90/64
--- NOTE | 2018-10-08 01:17 | NUR ---
NEW ADMIT FOR CHEST PAIN. PATIENT C/O OF PAIN 8 TO THE SCALE OF 0-10, 10 BEING THE WORST, AROUND LEFT LIMB CAGE. CALLED DR. MARTINEZ,NEW ORDER ZOFRAN 4MG, Q 4 HOURS AND FENTANYL 25 MCG Q 3 HOURS. PATIENT IS UP AT THIS TIME. PATIENT HAD EMESIS X2 BROWN EMESIS IN COLOR. PATIENT AMBULATES SLOWLY WITH STEADY GAITS. PATIENT GOES TO [facility], PATIENT HAD DIALYSIS YESTERDAY. PATIENT ON VANCOMYCIN AT THIS TIME.
[2018-10-08 04:01] VITALS: BP 110/73
[2018-10-08 08:57] VITALS: BP 94/61
--- NOTE | 2018-10-08 09:11 | EKG ---
[address] [place] [address] ELECTROCARDIOGRAM REPORT Name: HAJA ZAVALA Room #: 458-P ADM IN M.R.#: [id number] ������������������ Admission: 10/07/18 ������������������ Attend Phys: Magan Sagrent MD Discharge: ������������������ Date of : 55 Report #: [id number] ����������������������������������������������������������������� [id number] THIS REPORT FOR: //name// [facility] ED Test Date: 2018-10-07 Test Time: 21:38:10 Pat Name: HAJA ZAVALA Department: Room: [facility] Gender: M Mandrel Press Hand: Suzanne CASTANEDA : 1955 Requested By: Jason Pires Order Number: [id number] MD: Raoul Peña Measurements Intervals Humphrey Rate: 106 P: 24 [place]: 133 QRS: 43 QRSD: 78 T: 66 QT: 410 QTc: 545 Interpretive Statements Sinus tachycardia Prolonged QT interval Compared to ECG 09/27/2018 12:12:21 no significant change was found Electronically Signed On 10-08-2018 9:11:04 PALLETIZER by Raoul Peña [email or web address] ��������������������������������������������� <ELECTRONICALLY SIGNED> ���������������������������������������� By: Raoul Peña MD, [facility] ��������������������������������������������� 10/08/18 0911 37 37 Raoul Peña MD, [facility] /EPI
--- NOTE | 2018-10-08 14:05 | NUR ---
PT ADMITTED RELATED TO CHEST PAIN. PT IS FAMILIAR TO CM FROM PREVIOUS ADMISSION. CM REVIEWED CHART AND SPOKE WITH CARE TEAM. CM MET WITH PT AT BEDSIDE THIS DAY. PT IS A&O X4. CM ROLE INTRODUCED. PT INDICATED HE LIVES IN A HOUSE WITH HIS SIG OTHER WITH 6 STEPS TO ENTER AND TWO SETS OF 5 STEPS INSIDE. 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 PT INDICATED NO DME OR HH HX. PT CONFIRMED THAT HE GOES TO DIALYSIS MWF 0615 AT [facility]. PT INDICATED THAT HE GETS TO DIALYSIS VIA [facility]. PT INDICATED HE PLANS TO RETURN HOME ONCE MEDICALLY STABLE. CM TO FOLLOW INDICATED WITH DC PLANNING.
[2018-10-08 14:12] VITALS: BP 91/48
--- NOTE | 2018-10-08 14:55 | NUR ---
PT STABLE THROUGHOUT SHIFT. PT DISCHARGED HOME WITH HOME HEALTH. PT LEFT UNIT VIA WHEELCHAIR TO PRIVATE VEHICLE.
--- NOTE | 2018-10-08 19:28 | NUR ---
PT WAS ALERT AND ORIENTED THROUGHOUT DAY. PT WAS BEOMING AGITATED AND A ROOM CHANGE WAS PLANNED. RECORD CENTER SPECIALIST WENT TO CHECK ON PT, CALLED NURSE PT WAS NOT RESPONSIVE. CODE BLUE ACTIVATED- SEE CODE FLOW SHEET. PT AT 17:14. FAMILY NOTIFIED.
--- NOTE | 2018-10-09 00:20 | NUR ---
FAMILY LEFT AT AROUND 2310. CALLED SECURITY TO WIRE INSERTER THE BODY AT AROUND 2315.FAMILY LEFT. GIRLFRIEND WENT WITH BELONGINGS. DAUGHER WAS PRESENT. BODY PICKED UP AT AROUND 0020.
== END 2018-10-08 17:14 | DRG 871 ==
LOC: ER 20:58 → 4W 21:58 → EROBS 21:58 → 4W 23:12
PROVIDERS: Emergency Medicine; ADMIT Family Medicine
PROC: 5A12012 Performance of Cardiac Output, Single, Manual (ICD-10-PCS; principal; 2018-10-07)
PROC: 5A1935Z Respiratory Ventilation, Less than 24 Consecutive Hours (ICD-10-PCS; 2018-10-08)
PROC: 0BH17EZ Insertion of Endotracheal Airway into Trachea, Via Natural or Artificial Opening (ICD-10-PCS; 2018-10-08)
DX: A41.9 Sepsis, unspecified organism (principal); J18.9 Pneumonia, unspecified organism; N18.6 End stage renal disease; I12.0 Hypertensive chronic kidney disease with stage 5 chronic kidney disease or end stage renal disease; B37.81 Candidal esophagitis; E78.5 Hyperlipidemia, unspecified; I46.9 Cardiac arrest, cause unspecified; E11.22 Type 2 diabetes mellitus with diabetic chronic kidney disease; N40.0 Benign prostatic hyperplasia without lower urinary tract symptoms; F32.9 Major depressive disorder, single episode, unspecified; Y95 Nosocomial condition; F41.9 Anxiety disorder, unspecified; E11.43 Type 2 diabetes mellitus with diabetic autonomic (poly)neuropathy; K31.84 Gastroparesis; K21.9 Gastro-esophageal reflux disease without esophagitis; M10.9 Gout, unspecified; F17.210 Nicotine dependence, cigarettes, uncomplicated; I25.2 Old myocardial infarction; Z85.528 Personal history of other malignant neoplasm of kidney; Z90.5 Acquired absence of kidney; Z99.2 Dependence on renal dialysis; Z79.899 Other long term (current) drug therapy; Z88.5 Allergy status to narcotic agent
CPT/HCPCS: 10045